=== PATIENT | female | born 1955 | race Caucasian/White ===

== ENCOUNTER 2016-09-22 18:03 | Emergency (ER) | payer SELFPAY | END 2016-09-22 18:05 | disposition left against medical advice (07) | LOC: MED 18:03 | DX: Z53.21 Procedure and treatment not carried out due to patient leaving prior to being seen by health care provider (principal) ==

== ENCOUNTER 2016-12-14 15:45 | Inpatient (IN) | payer MEDICAID ==
[~2016-12-14] VITALS: Ht 162.6 cm; Wt 61.2 kg
[2016-12-14 15:57] VITALS: BP 168/110
[2016-12-14] MEDS ORDERED: ASPIRIN 325 MG TAB PO ONE (16:00)
[2016-12-14] MEDS ORDERED: MORPHINE SULFATE 4 MG/ML SYR IVP ONE (16:00)
[2016-12-14] MEDS ORDERED: NITROGLYCERIN 0.4 MG TAB SL ONE (16:00)
[2016-12-14 16:10] LABS: BASOPHILS # (AUTO) 0.2 K/uL (0.00-0.22); BASOPHILS % (AUTO) 1.9 % (0.0-2.0); EOSINOPHILS # (AUTO) 0.4 K/uL (0-0.4); EOSINOPHILS % (AUTO) 4.4 % (0.0-4.0); HEMATOCRIT 45.5 % (36-48); LYMPHOCYTES # (AUTO) 3.5 K/uL (2.5-16.5); LYMPHOCYTES % (AUTO) 42.7 % (20.5-51.1); MEAN CORPUSCULAR HEMOGLOBIN 35 pg (27-31); MEAN CORPUSCULAR HGB CONC 33 g/dL (33-37); MEAN CORPUSCULAR VOLUME 106 fL (80-94); MONOCYTES # (AUTO) 0.3 K/uL (0.8-1.0); MONOCYTES % (AUTO) 4.1 % (1.7-9.3); NEUTROPHILS # (AUTO) 3.8 K/uL (1.8-7.7); NEUTROPHILS % (AUTO) 46.9 % (42.2-75.2); PLATELET COUNT (AUTO) 273 K/uL (140-450); RED BLOOD CELL COUNT(AUTO) 4.28 MIL/uL (4.20-5.40); RED CELL DISTRIBUTION WIDTH 13.4 % (11.6-13.7); WHITE BLOOD COUNT (AUTO) 8.2 K/uL (4.8-10.8)
--- NOTE | 2016-12-14 16:11 | NUR ---
Patient ambulated to bed 7. RN evaluating patient at bedside.
[2016-12-14 16:38] LABS: PROTHROMBIN TIME 9.8 secs (10.8-13.4)
[2016-12-14 16:40] LABS: ALBUMIN 3.9 g/dL (3.4-5.0); ANION GAP 20.7 (8-16); CARBON DIOXIDE 20.7 mmol/L (21-32); CREATININE 0.9 mg/dL (0.6-1.3); POTASSIUM 4.4 mmol/L (3.5-5.1); TOTAL BILIRUBIN 0.4 mg/dL (0.0-1.0)
--- NOTE | 2016-12-14 16:46 | NUR ---
PT C/O MIDSTERNAL CHEST PRESSURE PAIN X 1 WK --INTERMITTENT, UNSURE WHAT MAY BE A CAUSING FACTOR---- DENIES SOB, FULL CLEAR SPEECH---
--- NOTE | 2016-12-14 17:36 | NUR ---
PT STATING CP IS BACK ---REQUESTING MORPHINE
[2016-12-14] MEDS ORDERED: KETOROLAC 30 MG/ML VIAL IVP ONE (17:45)
[2016-12-14] MEDS: NACL 0.9% 1,000 ML IV SCH (18:22)
[2016-12-14] MEDS ORDERED: HYDROmorphone 1 MG/ML AMP IVP PRN (18:25)
[2016-12-14] MEDS ORDERED: DOCUSATE SODIUM 100 MG GELCAP PO PRN (18:25)
[2016-12-14] MEDS ORDERED: ACETAMINOPHEN 325 MG TAB PO PRN (18:25)
[2016-12-14] MEDS ORDERED: ONDANSETRON 4 MG/2 ML VIAL IM/IVP PRN (18:25)
[2016-12-14] MEDS ORDERED: HYDROcodone/APAP 7.5/325 MG 1 TAB PO PRN (18:25)
--- NOTE | 2016-12-14 18:30 | NUR ---
TPt report given to MARILYNN TAVERAS . Transfer of care at this time TO TELE # [id number]
[2016-12-14 18:41] LABS: BARBITURATE, URINE NEG. ng/ml (NEG <=200); BENZODIAZEPINE, URINE NEG. ng/mL (NEG <=200); CANNABINOID, URINE NEG. ng/mL (NEG <=50); COCAINE, URINE NEG. ng/mL (NEG <=300); OPIATE, URINE NEG. ng/mL (NEG <=2000); PHENCYCLIDINE SCREEN,URINE NEG. ng/mL (NEG <=25)
[2016-12-14 18:44] LABS: BILIRUBIN,URINE NEGATIVE (NEGATIVE); BLOOD, URINE NEGATIVE (NEGATIVE); COLOR,URINE YELLOW (YELLOW); LEUKOCYTE ESTERASE ,URINE NEGATIVE (NEGATIVE); NITRITE, URINE NEGATIVE (NEGATIVE); UGLUCOSE NEGATIVE (NEGATIVE)
[2016-12-14 18:54] VITALS: BP 166/95
[2016-12-14 18:54] LABS: APPEARANCE,URINE CLEAR (CLEAR)
[2016-12-14 18:58] LABS: CHOL/HDL RATIO 2.9 (1-4.5); FREE T4 (FREE THYROXINE) 0.73 ng/dL (0.76-1.46); PHOSPHORUS 3.6 mg/dL (2.5-4.9)
[2016-12-14] MEDS ORDERED: METOPROLOL 25 MG TAB PO SCH (19:00)
--- NOTE | 2016-12-14 19:30 | NUR ---
RECEIVED BEDSIDE REPORT FROM DAY SHIFT NURSE, MARILYNN, PT JUST ARRIVED IN THE UNIT, ORIENTED PT TO UNIT. PT RESTING NO DISTRESS NOTED, STABLE, AAOX4, IV TO THE R AC 20G RUNNING NS @ 100 ML/HR, CUT TO THE L FINGER,, CALL LIGHT WITHIN REACH, ALL SAFETY PRECAUTION MET, INITIAL ASSESSMENT DONE. WILL CONTINUE TO MONITOR.
[2016-12-14] MEDS ORDERED: hydrOXYzine PAMOATE 25 MG CAP PO SCH (20:00)
[2016-12-14] MEDS ORDERED: ZOLPIDEM 5 MG TAB PO PRN (20:00)
[2016-12-14] MEDS ORDERED: ALBUTEROL SULFATE/IPRATROPIU 3 ML SOL IH PRN (20:20)
[2016-12-14 20:21] VITALS: BP 129/88
--- NOTE | 2016-12-14 20:40 | NUR ---
EXPLAINED TO PT THE BENEFITS OF SCD MACHINE. VERBALIZED UNDERSTANDING. SO MACHINE APPLIED TO BOTH LOWER LEG.
--- NOTE | 2016-12-14 21:06 | NUR ---
PER PATIENT NOT TO WAKE HER UP AT 0400 FOR EKG, SAID TO DO EKG AFTER 0500
--- NOTE | 2016-12-14 22:34 | NUR ---
CHECKED ON PT . AWAKE, AND SHE IS LIKE UNEASY. SHE SAID HER CHEST PAIN IS BACK. TALKED TO DR. NUNEZ, RESIDENT AND MADE AWARE OF THE PT CONCERN . HE SAID OK TO GIVE THE MORPHINE ORDERED.
[2016-12-14] MEDS: MORPHINE SULFATE 2 MG/ML SYR IVP PRN (22:42)
[2016-12-15] VITALS: BP 161/86
--- NOTE | 2016-12-15 00:09 | NUR ---
V/S CHECKED, PT BP 161/86, SCHEDULED LOPRESSOR GIVEN, PT TOLERATED WELL, PT RESTING, NO DISTRESS NOTED, CALL LIGHT WITHIN REACH, WILL CONTINUE TO MONITOR.
--- NOTE | 2016-12-15 00:22 | NUR ---
PT C/O NAUSEA, MEDICATION GIVEN, PT TOLERATED WELL , WILL CONTINUE TO MONITOR.
--- NOTE | 2016-12-15 01:57 | NUR ---
CHECKED ON PT, PT RESTING, NO DISTRESS NOTED, CALL LIGHT WITHIN REACH, WILL CONTINUE TO MONITOR.
[2016-12-15] MEDS: MORPHINE SULFATE 2 MG/ML SYR IVP PRN ×2 (03:27→15:03)
--- NOTE | 2016-12-15 03:27 | NUR ---
PT C/O PAIN, MEDICATION ADMINISTERED PER MD ORDER, PT TOLERATED WELL, NO DISTRESS NOTED, CALL LIGHT WITHIN REACH, WILL CONTINUE TO MONITOR.
[2016-12-15 04:00] VITALS: BP 148/89
[2016-12-15] MEDS: NACL 0.9% 1,000 ML IV SCH ×2 (04:22→15:05)
--- NOTE | 2016-12-15 04:49 | NUR ---
CHECKED ON PT, PT SLEEPING, NO DISTRESS NOTED, CALL LIGHT WITHIN REACH, WILL CONTINUE TO MONITOR.
[2016-12-15] MEDS: LORazepam 1 MG TAB PO PRN (06:28)
--- NOTE | 2016-12-15 06:43 | NUR ---
PT REFUSES TO GET THE FLU VACCINE RIGHT NOW, REQUESTED TO BE GIVEN BEFORE DISCHARGE.
[2016-12-15] MEDS ORDERED: INFLUENZA VIRUS VACCINE QUAD 0.5 ML SYR IMVAC SCH (07:00)
--- NOTE | 2016-12-15 07:25 | NUR ---
GAVE BEDSIDE REPORT TO DAY SHIFT NURSE, EDDIE, PT RESTING, NO DISTRESS NOTED, PT STABLE.
--- NOTE | 2016-12-15 07:28 | NUR ---
REPORT RECEIVED FROM NIGHTSHIFT NURSE, PT SLEEPING QUIETLY IN NAD, RESP EVEN UNLABORED ON ROOM AIR, AROUSED EASILY BY VOICE, INITIAL ASSESSMENT COMPLETED, IV TO R AC 20G NS @ 100ML/HR, SITE CLEAR, PLAN OF CARE REVIEWED, VERBALIZED FULL UNDERSTANDING, CALL MONTERROSO WITHIN REACH, SIDE RAILS UP, WILL CONTINUE TO MONITOR.
[2016-12-15 08:00] VITALS: BP 128/75
--- NOTE | 2016-12-15 08:05 | NUR ---
US TECH AT BEDSIDE FOR ABD US.
--- NOTE | 2016-12-15 08:24 | NUR ---
PT REQUESTS TO GET FLU SHOT ON THE DAY OF DISCHARGE, PT REFUSED TO GET FLU SHOT THIS AM SCHEDULED. WILL REPORT TO NEXT SHIFT.
[2016-12-15] MEDS ORDERED: MULTIVITAMIN 1 TAB PO SCH (09:00)
[2016-12-15] MEDS ORDERED: SERTRALINE 50 MG TAB PO SCH (09:00)
[2016-12-15] MEDS ORDERED: PANTOPRAZOLE 40 MG INJ VIAL IVP SCH (09:00)
[2016-12-15] MEDS ORDERED: THIAMINE 100 MG TAB PO SCH (09:00)
[2016-12-15] MEDS ORDERED: ECOTRIN 81 MG TABEC PO SCH (09:00)
[2016-12-15] MEDS ORDERED: METOPROLOL 50 MG TAB PO SCH (09:00)
[2016-12-15] MEDS ORDERED: LISINOPRIL 10 MG TAB PO SCH (09:00)
[2016-12-15] MEDS ORDERED: ATORVASTATIN 20 MG TAB PO SCH (09:00)
[2016-12-15] MEDS ORDERED: FOLIC ACID 1 MG TAB PO SCH (09:00)
--- NOTE | 2016-12-15 09:27 | NUR ---
DUE MEDS GIVEN, PT PATRICK WELL WITHOUT PROBLEM, NO C/O PAIN OR DISCOMFORT, DENIES ANY IMMEDIATE NEEDS, PT REMAINS ON MACHINE REPAIRER MAINTENANCE, WILL CONTINUE TO MONITOR.
[2016-12-15 09:46] LABS: BASOPHILS # (AUTO) 0.2 K/uL (0.00-0.22); BASOPHILS % (AUTO) 3.7 % (0.0-2.0); EOSINOPHILS # (AUTO) 0.2 K/uL (0-0.4); EOSINOPHILS % (AUTO) 3.2 % (0.0-4.0); HEMATOCRIT 35.3 % (36-48); LYMPHOCYTES # (AUTO) 1.7 K/uL (2.5-16.5); LYMPHOCYTES % (AUTO) 29.8 % (20.5-51.1); MEAN CORPUSCULAR HEMOGLOBIN 36 pg (27-31); MEAN CORPUSCULAR HGB CONC 34 g/dL (33-37); MEAN CORPUSCULAR VOLUME 105 fL (80-94); MONOCYTES # (AUTO) 0.6 K/uL (0.8-1.0); MONOCYTES % (AUTO) 9.9 % (1.7-9.3); NEUTROPHILS # (AUTO) 3.1 K/uL (1.8-7.7); NEUTROPHILS % (AUTO) 53.4 % (42.2-75.2); PLATELET COUNT (AUTO) 184 K/uL (140-450); RED BLOOD CELL COUNT(AUTO) 3.37 MIL/uL (4.20-5.40); RED CELL DISTRIBUTION WIDTH 13.3 % (11.6-13.7); WHITE BLOOD COUNT (AUTO) 5.8 K/uL (4.8-10.8)
[2016-12-15 09:48] LABS: ANION GAP 12.6 (8-16); CARBON DIOXIDE 25.9 mmol/L (21-32); CREATININE 0.8 mg/dL (0.6-1.3); POTASSIUM 4.5 mmol/L (3.5-5.1)
[2016-12-15 09:55] LABS: ALBUMIN 3.1 g/dL (3.4-5.0); ASPARTATE AMINOTRANSFERASE 136 U/L (15-37); BILIRUBIN,DIRECT 0.2 mg/dL (0.0-0.3); TOTAL BILIRUBIN 0.8 mg/dL (0.0-1.0)
[2016-12-15] MEDS: LORazepam 1 MG TAB PO SCH ×2 (11:53→18:01)
--- NOTE | 2016-12-15 11:54 | NUR ---
PT RESTING QUIETLY IN NAD, DUE ATIVAN GIVEN, PT PATRICK WELL, PT WITH SLIGHT TREMORS NOTED IN OUT STRETCHED HANDS, DENIES CHEST PAIN OR SOB, DENIES ANY IMMEDIATE NEEDS, WILL CONTINUE TO MONITOR.
[2016-12-15 12:00] VITALS: BP 130/72
--- NOTE | 2016-12-15 13:02 | NUR ---
PT PATRICK LUNCH WELL, NO C/O PAIN OR DISCOMFORT, NOW RESTING QUIETLY IN NAD, RESP EVEN UNLABORED, SKIN WARM DRY COLOR WNL, WILL CONTINUE TO MONITOR.
--- NOTE | 2016-12-15 15:08 | NUR ---
PT REQUEST "ATIVAN", BUT PT INFORMED THAT ATIVAN DOSE IS NOT SCHEDULED UNTIL 1800, PT THEN STATES SHE HAS CHEST PAIN AND REQUESTS PAIN MED, OFFERED NORCO BUT DECLINED, PT STATES NORCO MAKES HER GITTERY, MORPHINE GIVEN AT THIS TIME, PT DENIES SOB, PT REMAINS ON CARDIAC MONTIOR, WILL CONTINUE TO MONITOR.
[2016-12-15 16:00] VITALS: BP 140/83
--- NOTE | 2016-12-15 16:15 | NUR ---
PSYCH DOCTOR AT BEDSIDE.
--- NOTE | 2016-12-15 18:05 | NUR ---
DUE ATIVAN GIVEN, PT SITTING UP EATING DINNER, PT DENIES PAIN OR DISCOMFORT, IVF CONTINUES TO INFUSE IV SITE CLEAR, EXTRA BLANKET GIVEN FOR COMFORT, DENIES ANY OTHER IMMEDIATE NEEDS, PT REMAINS ON USED EQUIPMENT SALES REPRESENTATIVE, SAFETY MEASURES IN PLACE, WILL CONTINUE TO MONITOR.
--- NOTE | 2016-12-15 19:20 | NUR ---
REPORT GIVEN TO MANAGER IMAGING NURSE, PT IN STABLE CONDITION.
--- NOTE | 2016-12-15 19:30 | NUR ---
RECEIVED PT IN STABLE CONDITION FROM A M NURSE. AWAKE,ALERT AND ORIENTED 4. ON TELE MONITOR-SR. AMBULATORY. DENIES ANY PAIN AT THIS TIME. WITH IVF INFUSING WELL ON THE RT c #20. CLEAR AND PATENT. PLAN OF CARE DISCUSSED AND VERBALIZED UNDERSTANDING. CALL LIGHT PLACED WITHIN EASY REACH. WILL CONTINUE TO MONITOR.
[2016-12-15 19:45] VITALS: BP 146/79
--- NOTE | 2016-12-15 22:00 | NUR ---
AWAKE, BUT NO C/O OF ANY DISCOMFORT NOR PAIN NOTED.
--- NOTE | 2016-12-15 23:30 | NUR ---
IV HAS BEEN ALARMING. PT ALWAYS BENDS HER RT ARM. PT REFUSED IV SITE TO BE CHANGED.
[2016-12-16] MEDS: LORazepam 1 MG TAB PO SCH ×2 (00:24→06:03)
[2016-12-16] MEDS: NACL 0.9% 1,000 ML IV SCH (00:25)
[2016-12-16 00:29] VITALS: BP 160/88
--- NOTE | 2016-12-16 02:00 | NUR ---
MADE ROUNDS. ASLEEP. NO /S OF ANY DISTRESS NOTED.
[2016-12-16 04:01] VITALS: BP 133/88
[2016-12-16 06:00] LABS: BASOPHILS # (AUTO) 0.2 K/uL (0.00-0.22); BASOPHILS % (AUTO) 4.4 % (0.0-2.0); EOSINOPHILS # (AUTO) 0.2 K/uL (0-0.4); EOSINOPHILS % (AUTO) 4.5 % (0.0-4.0); HEMATOCRIT 34.3 % (36-48); HEMOGLOBIN 11.7 g/dL (12.0-16.0); LYMPHOCYTES # (AUTO) 1.6 K/uL (2.5-16.5); LYMPHOCYTES % (AUTO) 30.9 % (20.5-51.1); MEAN CORPUSCULAR HEMOGLOBIN 36 pg (27-31); MEAN CORPUSCULAR HGB CONC 34 g/dL (33-37); MEAN CORPUSCULAR VOLUME 105 fL (80-94); MONOCYTES # (AUTO) 0.6 K/uL (0.8-1.0); MONOCYTES % (AUTO) 10.9 % (1.7-9.3); NEUTROPHILS # (AUTO) 2.7 K/uL (1.8-7.7); NEUTROPHILS % (AUTO) 49.3 % (42.2-75.2); PLATELET COUNT (AUTO) 175 K/uL (140-450); RED BLOOD CELL COUNT(AUTO) 3.27 MIL/uL (4.20-5.40); RED CELL DISTRIBUTION WIDTH 13.1 % (11.6-13.7); WHITE BLOOD COUNT (AUTO) 5.3 K/uL (4.8-10.8)
[2016-12-16 06:48] LABS: ANION GAP 13.9 (8-16); CARBON DIOXIDE 26.2 mmol/L (21-32); CREATININE 0.6 mg/dL (0.6-1.3); POTASSIUM 4.1 mmol/L (3.5-5.1)
--- NOTE | 2016-12-16 07:00 | NUR ---
IV ACCESS ON RT AC PULLED OUT. STARTED A NEW IV ACCESS ON RT HAND #22.
--- NOTE | 2016-12-16 07:10 | NUR ---
RECEIVED REPORT FROM CLINICAL DIETICIAN RN. PATIENT IS AAOX4, NO COMPLAINTS OF PAIN AT THIS TIME. NO SIGNS AND SYMPTOMS OF ACUTE DISTRESS NOTED AT THIS TIME. HAS NORMAL SALINE INFUSING TO RIGHT HAND 22G AT 100 ML/HR. SITE IS CLEAN, DRY, PATENT AND INTACT. BED IS IN THE LOWEST POSITION, SIDERAILS UP X2, CALL LIGHT PLACED WITHIN REACH. WILL CONTINUE TO MONITOR.
--- NOTE | 2016-12-16 07:15 | NUR ---
ENDORSED PT IN STABLE CONDITION TO AM NURSE.
--- NOTE | 2016-12-16 07:50 | NUR ---
WENT IN TO TAKE PATIENTS VITAL SIGNS AND NOTICED THAT SHE HAD REMOVED HER IV, STATING THAT SHE WAS GOING TO BE DISCHARGED SOON AND IS CERTIFIED IN REMOVING IV. PATIENT IS STABLE AT THIS TIME, NO SIGNS AND SYMPTOMS OF DISTRESS NOTED AT THIS TIME. WILL CONTINUE TO MONITOR.
[2016-12-16 07:56] VITALS: BP 148/88
--- NOTE | 2016-12-16 08:40 | NUR ---
GOING TO FOLLOW THROUGH WITH DISCHARGE.
[2016-12-16] MEDS: LORazepam 1 MG TAB PO PRN (08:41)
[2016-12-16] MEDS ORDERED: ATI.5 PO (08:48)
[2016-12-16] MEDS ORDERED: SERT50TA PO (08:48)
[2016-12-16] MEDS ORDERED: ASPI81CT89 PO (08:48)
[2016-12-16] MEDS ORDERED: LISI10TA11 PO (08:55)
[2016-12-16] MEDS ORDERED: INFLUENZA VIRUS VACCINE QUAD 0.5 ML SYR IMVAC SCH (09:15)
--- NOTE | 2016-12-16 09:35 | NUR ---
GAVE PATIENT DISCHARGE INSTRUCTIONS ON WHEN AND WHERE TO FOLLOW UP, PRESCRIPTIONS FOR NEW MEDICATIONS HAVE BEEN GIVEN TO PATIENT. PATIENT HAD ALREADY DISCONTINUED HER IV, SITE IS DRY. REMOVED PATIENTS ID BANDS. FLU VACCINE GIVEN TO PATIENT IN LEFT DELTOID, TOLERATED WELL. PATIENT IS STABLE AT THIS TIME. WILL WALK OUT TO LOBBY WITH PATIENT.
--- NOTE | 2016-12-16 10:30 | NUR ---
PATIENT HAS BEEN SCREENED AND CATEGORIZED MODERATE NUTRITION RISK. PATIENT WILL BE SEEN WITHIN 3-5 DAYS OF ADMISSION. 12/16/16-12/19/[address]
[2016-12-17 06:28] LABS: T4 (THYROXINE) 5.6 ug/dL (4.5-12.0)
== END 2016-12-16 08:35 | disposition home or self-care (01) | DRG 243 ==
LOC: MED 15:45 → MTU 18:30
PROVIDERS: ADMIT Family Medicine; ATTEND Family Medicine
PROC: 3E0234Z Introduction of Serum, Toxoid and Vaccine into Muscle, Percutaneous Approach (ICD-10-PCS; principal; 2016-12-16)
DX: K21.9 Gastro-esophageal reflux disease without esophagitis (principal); G92 Toxic encephalopathy; E78.5 Hyperlipidemia, unspecified; J45.909 Unspecified asthma, uncomplicated; Z88.0 Allergy status to penicillin; F43.23 Adjustment disorder with mixed anxiety and depressed mood; J44.9 Chronic obstructive pulmonary disease, unspecified; F17.210 Nicotine dependence, cigarettes, uncomplicated; Y90.8 Blood alcohol level of 240 mg/100 ml or more; R74.0 Nonspecific elevation of levels of transaminase and lactic acid dehydrogenase [LDH]; M41.80 Other forms of scoliosis, site unspecified; F10.129 Alcohol abuse with intoxication, unspecified; Z23 Encounter for immunization
CPT/HCPCS: 36415; 71010; 76700; 80048; 80053; 80076; 80305; 81003; 83036; 83735; 83880; 84100; 84436; 84439; 84443; 84479; 84484; 85025; 85610; 85730; 87081; 90658; 93005; 96374; 96375; 99285; C9113; G0482; J1885; J2270; J2405; J7030; Q0092; Q0177

== ENCOUNTER 2017-05-07 16:29 | Inpatient (IN) | payer MEDICAID, OTHER ==
[~2017-05-07] VITALS: Ht 162.6 cm; Wt 64.9 kg
[~2017-05-07 16:29] MED LIST: ASPI81CT89 PO; ATI.5 PO; LISI10TA11 PO; SERT50TA PO
[2017-05-07 16:31] VITALS: BP 192/106
--- NOTE | 2017-05-07 16:39 | NUR ---
PT AMBUALTED TO BED 11.
[2017-05-07] MEDS ORDERED: MORPHINE SULFATE 4 MG/ML SYR IVP ONE ×2 (17:15→19:50)
[2017-05-07] MEDS ORDERED: ENALAPRILAT 2.5 MG/2 ML VIAL IVP ONE (17:15)
[2017-05-07] MEDS ORDERED: NITROGLYCERIN 2% 1 GM PKT TP ONE (17:15)
--- NOTE | 2017-05-07 17:26 | NUR ---
61F BIB FRIEND C/O LEFT CHEST PAIN X YESTERDAY. HX: PANIC ATTACKS, ASTHMA, HTN. DENIES N/V/D; SKIN IS PINK/WARM/DRY; AAOX4 WITH EVEN AND STEADY GAIT; LUNGS CLEAR BL; HR EVEN AND REGULAR; PT DENIES ANY FEVER, SOB, OR COUGH AT THIS TIME; PATIENT STATES PAIN OF 7/10 AT THIS TIME; VSS; PATIENT POSITIONED FOR COMFORT; HOB ELEVATED; BEDRAILS UP X2; BED DOWN. ER MD MADE AWARE OF PT STATUS.
[2017-05-07 17:42] LABS: BASOPHILS # (AUTO) 0.3 K/uL (0.00-0.22); EOSINOPHILS # (AUTO) 0.2 K/uL (0-0.4); HEMATOCRIT 40.3 % (36-48); HEMOGLOBIN 13.6 g/dL (12.0-16.0); LYMPHOCYTES # (AUTO) 0.9 K/uL (2.5-16.5); MEAN CORPUSCULAR HEMOGLOBIN 36 pg (27-31); MEAN CORPUSCULAR HGB CONC 34 g/dL (33-37); MEAN CORPUSCULAR VOLUME 106 fL (80-94); MONOCYTES # (AUTO) 0.8 K/uL (0.8-1.0); NEUTROPHILS # (AUTO) 5.3 K/uL (1.8-7.7); PLATELET COUNT (AUTO) 213 K/uL (140-450); RED BLOOD CELL COUNT(AUTO) 3.82 MIL/uL (4.20-5.40); RED CELL DISTRIBUTION WIDTH 13.9 % (11.6-13.7); WHITE BLOOD COUNT (AUTO) 7.5 K/uL (4.8-10.8)
[2017-05-07 17:57] LABS: ANION GAP 13.5 (8-16); CARBON DIOXIDE 24.6 mmol/L (21-32); CHOL/HDL RATIO 2.6 (1-4.5); CREATININE 0.8 mg/dL (0.6-1.3); POTASSIUM 3.1 mmol/L (3.5-5.1)
[2017-05-07 18:11] LABS: ALBUMIN 3.1 g/dL (3.4-5.0)
[2017-05-07 18:12] LABS: CREATINE KINASE MB 0.4 ng/mL (0-3.6)
[2017-05-07] MEDS ORDERED: LORazepam 2 MG/ML VIAL IVP PRN (18:55)
[2017-05-07] MEDS ORDERED: LORazepam 1 MG TAB PO PRN (18:55)
[2017-05-07] MEDS ORDERED: ZOLPIDEM 5 MG TAB PO PRN (18:55)
[2017-05-07] MEDS ORDERED: MORPHINE SULFATE 2 MG/ML SYR IVP PRN (18:55)
[2017-05-07] MEDS ORDERED: ONDANSETRON 4 MG/2 ML VIAL IVP PRN (18:55)
[2017-05-07] MEDS ORDERED: ACETAMINOPHEN 325 MG TAB PO PRN (18:55)
[2017-05-07] MEDS ORDERED: NITROGLYCERIN 0.4 MG TAB SL PRN (18:55)
--- NOTE | 2017-05-07 19:30 | NUR ---
REPORT RECEVIED FROM JOHAN TAVERAS.
--- NOTE | 2017-05-07 19:30 | NUR ---
Pt report given to JON TAVERAS. Transfer of care at this time.
[2017-05-07] MEDS ORDERED: SIMVASTATIN 20 MG TAB PO SCH (21:00)
[2017-05-07 21:10] VITALS: BP 125/65
--- NOTE | 2017-05-07 21:10 | NUR ---
RECEIVED PT FROM ER VIA NIKI REPORT GIVEN AT BED SIDE FROM ER NURSE DEANA , PT IS AAOX4 AMBULATORY ON SUPERVISOR PLATE FORMING SR DENIES ANY CHEST PAIN AT THIS TIME PAIN MEDIC WAS GIVEN IN ER HL PATENT ON RT HAND GAUGE # 20 SKIN IS INTACT MRSA NARES PROTOCOL TAKEN AND SENT TO LAB PT IS ORIENTED TO THE FLOOR CALL LIGHT WITHIN REACH
--- NOTE | 2017-05-07 21:15 | NUR ---
Pt report given to AYLA TAVERAS. Transfer of care at this time.
--- NOTE | 2017-05-07 21:20 | NUR ---
ZOFRAN GIVEN PT VOMITING DENIES ANY CHEST PAIN ON TELEMETRY SR
[2017-05-07] MEDS: NACL 0.9% 1,000 ML IV SCH (21:23)
[2017-05-07] MEDS: METOPROLOL 25 MG TAB PO SCH (21:46)
--- NOTE | 2017-05-07 22:00 | NUR ---
PT COMPLAINT FOR NAUSEAS AND VOMITING DENIES ANY PAIN MEDIC FOR NAUSEAS ALREADY GIVEN
[2017-05-07] MEDS ORDERED: TEMAZEPAM 15 MG CAP PO SCH (23:00)
[2017-05-08] VITALS: BP 152/85
--- NOTE | 2017-05-08 | NUR ---
PT RESTING ON BED NOT DISTRESS NO;JUDY DENIES ANY CHEST PAIN GETTING SLEEP ON TELEMETRY SR
[2017-05-08] MEDS ORDERED: HYDROcodone/APAP 5/325 MG 1 TAB TAB ONE (01:34)
[2017-05-08] MEDS: HYDROcodone/APAP 5/325 MG 1 TAB TAB PO PRN ×4 (01:40→19:40)
--- NOTE | 2017-05-08 02:46 | NUR ---
AFTER PAIN MEDIC PT SLEEPING WELL NOT DISTRESS NOTED, ;O;N TELEMETRY SR
[2017-05-08 03:26] LABS: CREATINE KINASE MB 0.7 ng/mL (0-3.6)
--- NOTE | 2017-05-08 04:00 | NUR ---
PT VOIDING WELL AMBULATES TO THE RESTROOM DENIES ANY PAIN AT THIS TIME
[2017-05-08 04:38] VITALS: BP 131/76
[2017-05-08] MEDS: NACL 0.9% 1,000 ML IV SCH ×3 (05:47→19:39)
--- NOTE | 2017-05-08 06:58 | NUR ---
PT REMAIN STABLE AT THIS TIME PT WILL BE ENDORSED TO DAY SHIFT NURSE FOR CONTINUITY OF CARE
--- NOTE | 2017-05-08 07:40 | NUR ---
ENDORSEMENT RECEIVED FROM BODY ART TECHNICIAN NURSE. PATIENT IS AWAKE, ALERT. RESPIRATION EVEN, UNLABOR ON ROOM AIR. SKIN DRY AND WARM. IV PATENT AND INTACT. COMPLAINED OF ABDOMINAL PAIN 2/10 WHEN RESTING, 7/10 ON MOVEMENT. WILL MEDICATE PER ORDER. PLAN OF CARE WAS DISCUSSED WITH PATIENT. BED AT LOW POSITION, SIDE RAILS UP. CALL LIGHT WITHIN REACH
[2017-05-08 07:52] LABS: HEMATOCRIT 35.6 % (36-48); HEMOGLOBIN 12.3 g/dL (12.0-16.0); MEAN CORPUSCULAR HEMOGLOBIN 37 pg (27-31); MEAN CORPUSCULAR HGB CONC 35 g/dL (33-37); MEAN CORPUSCULAR VOLUME 106 fL (80-94); PLATELET COUNT (AUTO) 183 K/uL (140-450); RED BLOOD CELL COUNT(AUTO) 3.35 MIL/uL (4.20-5.40); RED CELL DISTRIBUTION WIDTH 14.2 % (11.6-13.7); WHITE BLOOD COUNT (AUTO) 6.9 K/uL (4.8-10.8)
[2017-05-08 08:00] VITALS: BP 153/77
[2017-05-08 08:28] LABS: EOSINOPHILS % (MANUAL) 7 % (0-4); LYMPHOCYTES % (MANUAL) 39 % (20-46); MONOCYTES % (MANUAL) 7 % (5-12)
[2017-05-08 08:50] LABS: ALBUMIN 2.7 g/dL (3.4-5.0); ANION GAP 14.8 (8-16); CARBON DIOXIDE 23.4 mmol/L (21-32); CREATININE 0.7 mg/dL (0.6-1.3); MAGNESIUM 1.2 mg/dL (1.8-2.4); POTASSIUM 3.2 mmol/L (3.5-5.1); TOTAL BILIRUBIN 0.7 mg/dL (0.0-1.0)
[2017-05-08] MEDS: METOPROLOL 25 MG TAB PO SCH (08:55)
[2017-05-08] MEDS ORDERED: ENOXAPARIN 40 MG/0.4 ML SYR SUBQ SCH (09:00)
[2017-05-08] MEDS ORDERED: THIAMINE 100 MG TAB PO SCH (09:00)
[2017-05-08] MEDS ORDERED: FOLIC ACID 1 MG TAB PO SCH (09:00)
[2017-05-08] MEDS ORDERED: ASPIRIN 81 MG TAB.CHEW PO SCH (09:00)
[2017-05-08] MEDS ORDERED: MULTIVITAMIN 1 TAB PO SCH (09:00)
[2017-05-08] MEDS ORDERED: amLODIPine 5 MG TAB PO SCH (09:00)
[2017-05-08] MEDS ORDERED: ACETAMINOPHEN 325 MG TAB PO PRN (09:50)
[2017-05-08] MEDS ORDERED: HYDROcodone/APAP 5/325 MG 1 TAB TAB PO PRN (10:05)
[2017-05-08] MEDS ORDERED: LORazepam 2 MG/ML VIAL IVP PRN (10:05)
[2017-05-08] MEDS ORDERED: LORazepam 1 MG TAB PO PRN (10:05)
--- NOTE | 2017-05-08 10:34 | NUR ---
PATIENT HAS BEEN SCREENED AND CATEGORIZED MODERATE NUTRITION RISK. PATIENT WILL BE SEEN WITHIN 3-5 DAYS OF ADMISSION. 05/10/17 - 05/12/[address]
[2017-05-08] MEDS ORDERED: ONDANSETRON 4 MG/2 ML VIAL IVP PRN (10:40)
[2017-05-08] MEDS ORDERED: NITROGLYCERIN 0.4 MG TAB SL PRN (10:40)
[2017-05-08 10:53] LABS: CREATINE KINASE MB 0.7 ng/mL (0-3.6)
[2017-05-08 12:00] VITALS: BP 147/80
[2017-05-08] MEDS ORDERED: hydrALAZINE 20 MG/ML VIAL IVP PRN (12:15)
[2017-05-08] MEDS ORDERED: MORPHINE SULFATE 2 MG/ML SYR IVP PRN (12:35)
[2017-05-08] MEDS ORDERED: COMMUNICATION ORDER MC SCH (12:55)
--- NOTE | 2017-05-08 13:03 | NUR ---
PATIENT IS SWITCHED FROM OBS TO INPATIENT STATUS. IVF IS STILL INFUSING.
[2017-05-08] MEDS ORDERED: POTASSIUM CHLORIDE 10 MEQ TABER PO SCH (13:24)
--- NOTE | 2017-05-08 13:47 | NUR ---
CM NOTE INITIAL REVIEW FAXED TO [facility] [phone] [place] # [phone]
[2017-05-08] MEDS ORDERED: MAGNESIUM SULFATE 50% 1,000 MG in NACL 0.9% 50 ML IV SCH (14:00)
--- NOTE | 2017-05-08 14:30 | NUR ---
PATIENT AWAKE, ALERT. RESPIRATION EVEN, UNLABOR ON ROOM AIR. COMPLAINED OF ABDOMEN PAIN /. MED WAS GIVEN PER ORDER. NO DISTRESS NOTED AT THIS TIME
[2017-05-08 16:00] VITALS: BP 155/84
--- NOTE | 2017-05-08 17:04 | NUR ---
PATIENT AWAKE, ALERT. RESPIRATION EVEN, UNLABOR ON ROOM AIR. COMPLAINED OF HEADACHE. MED WAS GIVEN PER ORDER. IV PATENT AND INTACT. NO DISTRESS NOTED AT THIS TIME. CALL LIGHT WITHIN REACH
--- NOTE | 2017-05-08 18:40 | NUR ---
URINE WAS COLLECTED AND SENT TO LAB
[2017-05-08 19:13] LABS: BARBITURATE, URINE NEG. ng/ml (NEG <=200); BENZODIAZEPINE, URINE POS. ng/mL (NEG <=200); CANNABINOID, URINE NEG. ng/mL (NEG <=50); COCAINE, URINE NEG. ng/mL (NEG <=300); OPIATE, URINE POS. ng/mL (NEG <=2000); PHENCYCLIDINE SCREEN,URINE NEG. ng/mL (NEG <=25)
--- NOTE | 2017-05-08 19:17 | NUR ---
ENDORSEMENT GIVEN TO CAR PORTER NURSE. PATIENT IS STABLE AT THIS TIME
--- NOTE | 2017-05-08 19:18 | NUR ---
PATIENT REPORT RECEIVED FROM MORNING NURSE AT BEDSIDE. PATIENT IS AWAKE, ALERT AND ORIENTED. NO SIGNS AND SYMPTOMS OF DISTRESS NOTED. PATIENT IS ON ROOM AIR. IV SITE NOTED ON RIGHT ARM, IVF INFUSING WELL. PLAN OF CARE DISCUSSED WITH PATIENT. PATIENT VERBALIZED UNDERSTANDING. BED IN LOWEST POSITION, SIDE RAILS UP AND CALL LIGHT WITHIN REACH. WILL CONTINUE TO MONITOR.
[2017-05-08 20:00] VITALS: BP 158/96
--- NOTE | 2017-05-08 20:10 | NUR ---
PATIENT SEEN BY DR. Jona LEPE
[2017-05-08] MEDS: METOPROLOL 50 MG TAB PO SCH (20:48)
[2017-05-08] MEDS ORDERED: TEMAZEPAM 15 MG CAP PO SCH (21:00)
[2017-05-08] MEDS ORDERED: SIMVASTATIN 20 MG TAB PO SCH (21:00)
[2017-05-08] MEDS ORDERED: METOPROLOL 25 MG TAB PO SCH ×2 (21:00)
--- NOTE | 2017-05-08 21:00 | NUR ---
MEDICATION EDUCATION GIVEN. PATIENT VERBALIZED UNDERSTANDING. MEDICATION ADMINISTERED ORDERED. PATIENT TOLERATED WELL. WILL CONTINUE TO MONITOR.
--- NOTE | 2017-05-08 22:00 | NUR ---
CHECKED ON PATIENT. PATIENT RESTING COMFORTABLY IN BED READING A BOOK. WILL CONTINUE TO MONITOR
[2017-05-09] VITALS: BP 135/70
--- NOTE | 2017-05-09 | NUR ---
PATIENT ACCIDENTALLY PULLED IV SITE OUT. IV CANNULA INTACT. NEW IV INSERTED IN RIGHT FOREARM, 22 GAUGE. PATIENT TOLERATED WELL. WILL CONTINUE TO MONITOR.
[2017-05-09] MEDS: HYDROcodone/APAP 5/325 MG 1 TAB TAB PO PRN ×2 (02:33→08:43)
[2017-05-09 04:00] VITALS: BP 146/81
--- NOTE | 2017-05-09 04:30 | NUR ---
CHECKED ON PATIENT. PATIENT IS ASLEEP. NO SIGNS AND SYMPTOMS OF DISTRESS NOTED. BREATHING EVEN AND UNLABORED. WILL CONTINUE TO MONITOR.
[2017-05-09] MEDS: NACL 0.9% 1,000 ML IV SCH (05:28)
--- NOTE | 2017-05-09 07:26 | NUR ---
PATIENT REPORT GIVEN TO MORNING NURSE AT BEDSIDE FOR CONTINUITY OF CARE. PATIENT IS IN STABLE CONDITION
--- NOTE | 2017-05-09 07:27 | NUR ---
RECEIVED REPORT FROM DITCH TENDER NURSE. PATIENT SITTING IN BED COMFORTABLY. NO DISTRESS NOTED. DENIES ANY PAIN AT THIS TIME. AAOX4, CALM, COOPERATIVE, SKIN COLOR APPROPRIATE TO ETHNICITY, WARM TO TOUCH. SKIN IS INTACT. PATIENT AMBULATED TO BATHROOM AND BACK TO BED WITH STEADY GAIT. IV SITE IS INTACT, PATENT, AND INFUSING IVF PER ORDERS. LUNGS CTA ON ALL LOBES. ABDOMEN SOFT, NON-DISTENDED. REVIEWED PLAN OF CARE WITH PATIENT. PATIENT VERBALIZED UNDERSTANDING. SAFETY MEASURES IN PLACE, CALL LIGHT WITHIN REACH. WILL CONTINUE TO MONITOR.
[2017-05-09 08:00] VITALS: BP 157/81
[2017-05-09] MEDS: METOPROLOL 50 MG TAB PO SCH (08:46)
--- NOTE | 2017-05-09 08:55 | NUR ---
PATIENT LYING IN BED WATCHING TV. NO DISTRESS NOTED. COMPLAINS OF LEFT FLANK PAIN. NORCO GIVEN PER ORDERS. SCHEDULED MEDICATIONS DUE GIVEN. SAFETY MEASURES IN PLACE, CALL LIGHT WITHIN REACH. WILL CONTINUE TO MONITOR.
[2017-05-09] MEDS ORDERED: FOLIC ACID 1 MG TAB PO SCH (09:00)
[2017-05-09] MEDS ORDERED: ENOXAPARIN 40 MG/0.4 ML SYR SUBQ SCH (09:00)
[2017-05-09] MEDS ORDERED: SERTRALINE 50 MG TAB PO SCH (09:00)
[2017-05-09] MEDS ORDERED: amLODIPine 5 MG TAB PO SCH (09:00)
[2017-05-09] MEDS ORDERED: ASPIRIN 81 MG TAB.CHEW PO SCH ×2 (09:00)
[2017-05-09] MEDS ORDERED: THIAMINE 100 MG TAB PO SCH (09:00)
[2017-05-09] MEDS ORDERED: MULTIVITAMIN 1 TAB PO SCH (09:00)
--- NOTE | 2017-05-09 10:50 | NUR ---
PATIENT SITTING IN BED COMFORTABLY. NO DISTRESS NOTED. DENIES ANY PAIN AT THIS TIME. CONDITION UNCHANGED. WILL CONTINUE TO MONITOR.
--- NOTE | 2017-05-09 12:30 | NUR ---
PATIENT SITTING IN BED. PATIENT MADE AWARE THAT SHE WILL BE DISCHARGED HOME TODAY. PATIENT VERBALIZED UNDERSTANDING. PATIENT LIVES NEARBY AND HAS A FAMILY MEMBER TO TAKE PATIENT HOME. DISCHARGE INSTRUCTIONS PROVIDED TO PATIENT IN PREFERRED LANGUAGE OF [place]. FOLLOW-UP VISIT WITH PCP, NEW/CHANGED MEDICATION REGIMEN, AND DIET REGIMEN. ANSWERED ALL OF PATIENT'S QUESTIONS REGARDING DISCHARGE. ALL BELONGINGS WITH PATIENT. ID BAND REMOVED. IV SITE REMOVED WITH MINIMAL BLOOD AND LUMEN COMPLETELY INTACT. PATIENT TO GET DRESSED AND AWAITING FOR FAMILY MEMBER TO ARRIVE. WILL CONTINUE TO MONITOR.
--- NOTE | 2017-05-09 12:51 | NUR ---
CM NOTE CONCURRENT REVIEW FAXED TO [facility] [phone] [place] # [phone]
--- NOTE | 2017-05-09 12:55 | NUR ---
PATIENT'S FAMILY MEMBER AT BEDSIDE READY TO TAKE PATIENT HOME. PATIENT ALL DRESSED UP AND READY TO GO. ESCORTED PATIENT DOWN TO LOBBY VIA AMBULATION WITH STEADY GAIT. REFUSED WHEELCHAIR ESCORT DOWN TO LOBBY. PATIENT DISCHARGED HOME VIA PRIVATE VEHICLE AT THIS TIME IN STABLE CONDITION.
== END 2017-05-09 12:55 | disposition home or self-care (01) | DRG 203 ==
LOC: MED 16:29 → MTU 18:54 → OBSVTOIN 05-08 13:01
PROVIDERS: ADMIT Hospitalist; ATTEND Hospitalist
DX: M94.0 Chondrocostal junction syndrome [Tietze] (principal); E83.42 Hypomagnesemia; I10 Essential (primary) hypertension; R07.89 Other chest pain; J45.909 Unspecified asthma, uncomplicated; Z88.0 Allergy status to penicillin; Z91.041 Radiographic dye allergy status; Z79.82 Long term (current) use of aspirin; Z79.899 Other long term (current) drug therapy; F17.210 Nicotine dependence, cigarettes, uncomplicated
CPT/HCPCS: 96374; 96375; 99291; G0378; 36415; 71045; 80053; 80305; 82550; 82553; 83735; 83880; 84484; 85025; 85379; 87081; 93005; J1650; J2270; J2405; J3475; J3490; J7030; Q0092

== ENCOUNTER 2017-06-05 21:01 | Emergency (ER) | payer OTHER ==
[~2017-06-05] VITALS: Ht 165.1 cm; Wt 64.9 kg
[2017-06-05 21:13] VITALS: BP 125/94
--- NOTE | 2017-06-05 21:59 | NUR ---
BERNARD WJEELCHAIR TO ER CHAIR B Addendum: 06/05/17 at 2200 by MED[facility] BIB WHEELCHAIR TO ER [facility]B
[2017-06-05] MEDS ORDERED: traMADol 50 MG TAB PO ONE (22:05)
--- NOTE | 2017-06-05 22:20 | NUR ---
61Y/F C/O PAIN TO LEFT FOOT X1 WEEK, S/P MECH FALL, SWELLING NOTED TO AREA, SKIN INTACT. PT WAS SEEN IN ED AT TIME OF INCIDENT BUT IS C/O INCREASING PAIN AND SWELLING. +CMS, PT STATES SHE IS UNABLE TO WALK OR APPLY PRESSURE TO FOOT. PMH ASTHMA, HTN
--- NOTE | 2017-06-05 22:45 | NUR ---
PT AMBULATED TO RESTROOM, STEADY GAIT.
[2017-06-05 23:14] VITALS: BP 107/72
--- NOTE | 2017-06-05 23:14 | NUR ---
Patient discharged with v/s stable. Written and verbal after care instructions given and explained. Patient alert, oriented and verbalized understanding of instructions. Ambulatory with steady gait. All questions addressed prior to discharge. ID band removed. Patient advised to follow up with PMD. Rx of ULTRAM 50MG, MOTRIN 800MG given. Patient educated on indication of medication including possible reaction and side effects. Opportunity to ask questions provided and answered.
== END 2017-06-05 23:14 | disposition home or self-care (01) ==
LOC: MED 21:01
DX: S92.415A Nondisplaced fracture of proximal phalanx of left great toe, initial encounter for closed fracture (principal); S92.312A Displaced fracture of first metatarsal bone, left foot, initial encounter for closed fracture; J45.909 Unspecified asthma, uncomplicated; I10 Essential (primary) hypertension; Z91.041 Radiographic dye allergy status; Z88.0 Allergy status to penicillin; W10.9XXA Fall (on) (from) unspecified stairs and steps, initial encounter; Y93.89 Activity, other specified; Y99.8 Other external cause status; Y92.89 Other specified places as the place of occurrence of the external cause
CPT/HCPCS: 29515; 73630; 99284

== ENCOUNTER 2017-06-28 13:14 | Emergency (ER) | payer OTHER ==
[~2017-06-28] VITALS: Ht 165.1 cm; Wt 63.5 kg
[2017-06-28 13:16] VITALS: BP 155/87
--- NOTE | 2017-06-28 13:53 | NUR ---
PATIENT PRESENTS TO ED WITH MECHANICAL FALL ONTO LEFT SIDE; HIP AND THIGH PAIN X LAST NIGHT NO SWELLING NO DISCOLORATION, NO OBVIOUS DEFORMITIES NOTED FULL FLEX/EXTENSION BLE--ABLE TO SELF REPOSITION IN [place]ER[place] HEAVY ETOH ON BREATH---FULL CLEAR SPEECH ADMITS HER PMD TOLD HER YESTERDAY, HE WILL NOT REFILL HER NORCO OR ATIVAN RX PT ADDS NORCO DO NOTHING FOR HER CHRONIC PAIN AND SHE TAKES 3 ATIVAN FOR HER ANXIETY A DAY DENIES N/V/D; SKIN IS PINK/WARM/DRY; AAOX4 WITH EVEN AND STEADY GAIT; LUNGS CLEAR BL; HR EVEN AND REGULAR; PT DENIES ANY FEVER, CP, SOB, OR COUGH AT THIS TIME; PATIENT STATES PAIN OF 8/10 AT THIS TIME; VSS; PATIENT POSITIONED FOR COMFORT; HOB ELEVATED; BEDRAILS UP X2; BED DOWN. ER MD MADE AWARE OF PT STATUS.
--- NOTE | 2017-06-28 14:04 | NUR ---
NOTED PT IS ABLE TO CROSS LLE OVER RLE WHILE IN A SEATED POSITION WITHOUT A GRIMACE OR MOAN---- PT REFUSED X-RAY
[2017-06-28] MEDS ORDERED: KETOROLAC 60 MG/2 ML VIAL IM ONE (14:15)
[2017-06-28 15:41] VITALS: BP 155/87
--- NOTE | 2017-06-28 15:41 | NUR ---
Patient discharged with v/s stable, PAIN 9/10 UNRELIEVED BY TORADOL. Written and verbal after care instructions given and explained. Patient alert, oriented and verbalized understanding of instructions. Ambulatory with steady gait. All questions addressed prior to discharge. ID band removed. Patient advised to follow up with PMD. Rx of IBUPROFEN AND NORCO given. Patient educated on indication of medication including possible reaction and side effects. Opportunity to ask questions provided and answered.
== END 2017-06-28 15:41 | disposition home or self-care (01) ==
LOC: MED 13:14
DX: S70.02XA Contusion of left hip, initial encounter (principal); I10 Essential (primary) hypertension; J45.909 Unspecified asthma, uncomplicated; Z88.0 Allergy status to penicillin; Z91.041 Radiographic dye allergy status; W01.0XXA Fall on same level from slipping, tripping and stumbling without subsequent striking against object, initial encounter; Y93.89 Activity, other specified; Y99.8 Other external cause status; Y92.89 Other specified places as the place of occurrence of the external cause
CPT/HCPCS: 73502; 73552; 96372; 99284; J1885

== ENCOUNTER 2017-08-14 03:27 | Emergency (ER) | payer OTHER ==
[~2017-08-14] VITALS: Ht 167.6 cm; Wt 62.6 kg
[2017-08-14 03:28] VITALS: BP 163/93
--- NOTE | 2017-08-14 03:28 | NUR ---
BIB BY EMS. PATIENT PRESENTS TO ED WITH ETOH. PT STATES SHE TOOK 1MG OF ATIVAN AND DRANK WINE AT HOME. PT STATES SHE WAS IN FRONT OF HER NEIGHBORS HOUSE WHEN SHE FELT FATIGUE AND FELL DOWN AND COULD NOT GET UP. NEIGHBOR CALLED 911. DENIES N/V/D; SKIN IS PINK/WARM/DRY; AAOX4 WITH EVEN AND STEADY GAIT; LUNGS CLEAR BL; HR EVEN AND REGULAR; PT DENIES ANY FEVER, CP, SOB, OR COUGH AT THIS TIME; PATIENT STATES PAIN OF 6/10 AT THIS TIME; PAIN IN BACK BUT PT STATES PAIN IS CHRONIC; VSS; PATIENT POSITIONED FOR COMFORT; HOB ELEVATED; BEDRAILS UP X2; BED DOWN. ER MD MADE AWARE OF PT STATUS. CONTINUE TO MONITOR.
--- NOTE | 2017-08-14 03:35 | NUR ---
PT AMBULATED TO RESTROOM WITHOUT ASSISTANCE. PT GAIT IS STRONG AND EVEN. PT STATES UNABLE TO PROVIDE URINE SAMPLE AT THIS TIME. PT AMBULATED BACK TO ROOM 8 WITH VSS. PROVIDED WATER PO. CONTINUE TO MONITOR.
[2017-08-14 04:01] LABS: BASOPHILS # (AUTO) 0.1 K/uL (0.00-0.22); BASOPHILS % (AUTO) 0.8 % (0.0-2.0); EOSINOPHILS # (AUTO) 0.4 K/uL (0-0.4); HEMATOCRIT 47.6 % (36-48); HEMOGLOBIN 15.8 g/dL (12.0-16.0); LYMPHOCYTES # (AUTO) 3.8 K/uL (2.5-16.5); LYMPHOCYTES % (AUTO) 43.3 % (20.5-51.1); MEAN CORPUSCULAR HEMOGLOBIN 37 pg (27-31); MEAN CORPUSCULAR HGB CONC 33 g/dL (33-37); MEAN CORPUSCULAR VOLUME 110.9 fL (80-94); MONOCYTES # (AUTO) 0.6 K/uL (0.8-1.0); MONOCYTES % (AUTO) 6.5 % (1.7-9.3); NEUTROPHILS # (AUTO) 3.9 K/uL (1.8-7.7); NEUTROPHILS % (AUTO) 44.4 % (42.2-75.2); PLATELET COUNT (AUTO) 278 K/uL (140-450); RED BLOOD CELL COUNT(AUTO) 4.29 MIL/uL (4.20-5.40); RED CELL DISTRIBUTION WIDTH 14.5 % (11.6-13.7); WHITE BLOOD COUNT (AUTO) 8.7 K/uL (4.8-10.8)
[2017-08-14 04:10] LABS: ANION GAP 17.9 (8-16); CARBON DIOXIDE 21.9 mmol/L (21-32); POTASSIUM 3.8 mmol/L (3.5-5.1)
[2017-08-14 04:28] LABS: ALBUMIN 3.9 g/dL (3.4-5.0); TOTAL BILIRUBIN 0.3 mg/dL (0.0-1.0)
[2017-08-14 04:30] LABS: BARBITURATE, URINE NEG. ng/ml (NEG <=200); BENZODIAZEPINE, URINE POS. ng/mL (NEG <=200); CANNABINOID, URINE NEG. ng/mL (NEG <=50); COCAINE, URINE NEG. ng/mL (NEG <=300); OPIATE, URINE NEG. ng/mL (NEG <=2000); PHENCYCLIDINE SCREEN,URINE NEG. ng/mL (NEG <=25)
--- NOTE | 2017-08-14 04:30 | NUR ---
Dr. Culp evaluating patient at bedside.
[2017-08-14 04:38] VITALS: BP 163/93
--- NOTE | 2017-08-14 04:38 | NUR ---
Patient discharged with v/s stable. Written and verbal after care instructions given and explained. Patient verbalized understanding. Ambulatory with steady gait. All questions addressed prior to discharge. Advised to follow up with PMD.
== END 2017-08-14 04:38 | disposition home or self-care (01) ==
LOC: MED 03:27
DX: F10.129 Alcohol abuse with intoxication, unspecified (principal); F41.9 Anxiety disorder, unspecified; J45.909 Unspecified asthma, uncomplicated; I10 Essential (primary) hypertension; Z91.041 Radiographic dye allergy status; Z88.0 Allergy status to penicillin
CPT/HCPCS: 36415; 80053; 80305; 81002; 81025; 85025; 99284; G0482